=== PATIENT | female | born 1995 | race Caucasian/White ===

== ENCOUNTER 2016-12-03 06:25 | Emergency (ER) | payer OTHER ==
[2016-12-03] MEDS ORDERED: IBUPROFEN 600 MG TABLET ONE (07:15)
[2016-12-03] MEDS ORDERED: ACETAMINOPHEN 325 MG TABLET ONE (07:15)
--- NOTE | 2016-12-03 07:25 | RAD ---
Exam: Two-view chest COMPARISON: None INDICATION: Cough. Bilateral rib pain. FINDINGS: PA and lateral views the chest were obtained. Cardiac silhouette is within normal limits. Lungs are well-inflated. There is focal eventration of the posterior left hemidiaphragm versus perhaps congenital hernia. There is no focal airspace disease or pleural effusion. Bones of the chest wall within normal limits. IMPRESSION: No radiographic evidence of pneumonia.
== END 2016-12-03 07:42 | disposition home or self-care (01) ==
LOC: ED 06:25
DX: J06.9 Acute upper respiratory infection, unspecified (principal)
CPT/HCPCS: 71020; 87804; 99283 ×2; A9270 ×2